=== PATIENT | female | born 1970 | race American Indian/Alaskan Native ===

== ENCOUNTER 2021-07-02 04:57 | Emergency (ER) | payer SELFPAY ==
[2021-07-02 05:02] VITALS: BP 151/91
[2021-07-02] MEDS ORDERED: HYDROcodone/ACETAMINOPHEN 5-325 MG TAB PO ONE (05:13)
--- NOTE | 2021-07-02 05:28 | Emergency Department Report ---
ED Upper Extremity Inj HPI - General Chief Complaint: Extremity Injury, Upper Stated Complaint: SHOULDER INJURY Time Seen by Provider: 07/02/21 05:10 Source: patient Mode of arrival: Ambulatory Limitations: No Limitations - History of Present Illness Initial Comments: 48-year-old female presents emerged department complaining of atraumatic right shoulder pain. States she was sitting at table with her arms on the counter had a coughing spell which caused sharp shooting pain and burning sensation to her right shoulder which continue to linger since the onset a few days ago. Pain is worse with palpation and range of motion radiates up her neck and feels stiff and spastic at times. She reports no chest pain, palpitation or shortness of breath, no nausea, no vomiting, no headache. MD Complaint: Injury to:: right, shoulder -: Sudden Other Extremity Injury: Shoulder: Right Other Injuries: none Place: home Severity scale (0 -10): 8 Improves With: immobilization, medication Worsens With: movement of extremity Associated Symptoms: numbness. denies: suspects foreign body, nausea/vomiting, heard/felt popping sensat - Related Data Previous Rx's Medication Instructions Recorded Last Taken Type Ketorolac [Toradol] 10 mg PO Q6H PRN #20 07/02/21 Unknown Rx methOCARBAMOL [Robaxin TAB] 750 mg PO Q8H PRN #30 07/02/21 Unknown Rx Allergies Allergy/AdvReac Type Severity Reaction Status Date / Time No Known Allergies Allergy Unverified 07/02/21 05:02 ED Review of Systems ROS: Stated complaint: SHOULDER INJURY Other details as noted in HPI Comment: All other systems reviewed and negative ED Past Medical Hx - Past Medical History Previous Medical History?: No - Surgical History Past Surgical History?: No - Medications Home Medications: Home Medications Medication Instructions Recorded Confirmed Last Taken Type Ketorolac [Toradol] 10 mg PO Q6H PRN #20 07/02/21 Unknown Rx methOCARBAMOL [Robaxin TAB] 750 mg PO Q8H PRN #30 07/02/21 Unknown Rx ED Physical Exam - General Limitations: No Limitations General appearance: alert, in no apparent distress - Head Head exam: Present: atraumatic, normocephalic - Eye Eye exam: Present: normal appearance - ENT ENT exam: Present: mucous membranes moist - Neck Neck exam: Present: normal inspection - Respiratory Respiratory exam: Present: normal lung sounds bilaterally. Absent: respiratory distress - Cardiovascular Cardiovascular Exam: Present: regular rate, normal rhythm. Absent: systolic murmur, diastolic murmur, rubs, gallop - GI/Abdominal GI/Abdominal exam: Present: soft, normal bowel sounds - Extremities Exam Extremities exam: Present: normal inspection, tenderness, normal capillary refill, other (To the right shoulder with palpation spasm to the left trapezial region. No AC joint tenderness is noted. Pain with flexion extension of the shoulder and supination and pain pronation.) - Back Exam Back exam: Present: normal inspection - Neurological Exam Neurological exam: Present: alert, oriented X3 - Psychiatric Psychiatric exam: Present: normal affect, normal mood - Skin Skin exam: Present: warm, dry, intact, normal color. Absent: rash ED Course Vital Signs 07/02/21 05:01 Temperature 98.6 F Pulse Rate 101 H Respiratory 18 Rate Blood Pressure 151/91 O2 Sat by Pulse 98 Oximetry ED Medical Decision Making - Medical Decision Making 48-year-old female presents emerged [place] with symptoms suspicious for rotator cuff injury the differential diagnosis includes bursitis, muscle strain, partial tear, impingement syndrome, capsulitis, neck pain. Neurovascularly intact and no significant mechanism Plan sling ice rest anti-inflammatories pain medication follow-up with orthopedic Critical care attestation.: If time is entered above; I have spent that time in minutes in the direct care of this critically ill patient, excluding procedure time. ED Disposition Clinical Impression: Shoulder strain Disposition: HOME / SELF CARE / HOMELESS Is pt being admited?: No Does the pt Need Aspirin: No Condition: Stable Instructions: How to Use Cold Therapy, [id number], Muscle Strain, [id number], Elastic Bandage and RICE Therapy, Muscle Strain, How to Use Cold Therapy Additional Instructions: Seen emergency department today for shoulder pain which after evaluation of the shoulder and based on mechanism of injury and history no urgent or emergent condition was discovered. Pain medication has been prescribed to help to alleviate her symptoms along with a sling to help to mitigate symptoms as well please be sure to ice her shoulder as mentioned and be sure to follow-up with orthopedic for definitive management as if pain continues an MRI may be needed Prescriptions: methOCARBAMOL [Robaxin TAB] 750 mg PO Q8H PRN #30 PRN Reason: Muscle Spasm Ketorolac [Toradol] 10 mg PO Q6H PRN #20 PRN Reason: Pain Referrals: MAURIZIO KEITH MD [Staff Physician] - 3-5 Days
[2021-07-02] MEDS ORDERED: ONDANSETRON 4 MG ODT TAB ONE (06:24)
[2021-07-02] MEDS ORDERED: ONDANSETRON 4 MG ODT TAB PO PRN (06:25)
== END 2021-07-02 06:29 | disposition home or self-care (01) ==
LOC: ED 04:57
DX: S46.811A Strain of other muscles, fascia and tendons at shoulder and upper arm level, right arm, initial encounter (principal); Z79.899 Other long term (current) drug therapy; X58.XXXA Exposure to other specified factors, initial encounter; Y93.89 Activity, other specified; Y92.89 Other specified places as the place of occurrence of the external cause; Y99.8 Other external cause status
CPT/HCPCS: 99282; J3490; Q0162